=== PATIENT | male | born 1960 | race Two or more races ===

== ENCOUNTER 2018-03-14 18:37 | Emergency (ER) | payer OTHER ==
[~2018-03-14] VITALS: Ht 177.8 cm; Wt 95.3 kg
[~2018-03-14 18:37] MED LIST: ACIDOPHILUS1 EAC3 PO; AMOX1TAB12 PO; ATENOLOL25 GM; MEDROLPACK PO; MUCINEX1200 MG PO; NORVASC2.5 M1
== END 2018-03-14 20:30 | disposition home or self-care (01) ==
LOC: ER 18:37
DX: H10.33 Unspecified acute conjunctivitis, bilateral (principal)

== ENCOUNTER 2018-06-19 19:41 | Emergency (ER) | payer OTHER ==
[~2018-06-19] VITALS: Ht 177.8 cm; Wt 93.0 kg
== END 2018-06-19 21:39 | disposition home or self-care (01) ==
LOC: ER 19:41
DX: R33.8 Other retention of urine (principal)

== ENCOUNTER 2024-12-08 11:45 | Emergency (ER) | payer OTHER ==
[~2024-12-08] VITALS: Ht 177.8 cm; Wt 86.2 kg
[2024-12-08] MEDS ORDERED: AVAPRO150 MG PO (12:04)
[2024-12-08] MEDS ORDERED: LABETALOL HCL100 MG PO (12:04)
[2024-12-08] MEDS ORDERED: HYDROCHLOROTH12.5 MG (12:05)
[2024-12-08] MEDS ORDERED: 8 HOUR650 MG PO (12:58)
[2024-12-08] MEDS ORDERED: BACTRIM DS TAB1 EACH PO (12:58)
== END 2024-12-08 13:03 | disposition home or self-care (01) ==
LOC: ER 11:46
DX: L02.213 Cutaneous abscess of chest wall (principal); I10 Essential (primary) hypertension; Z88.6 Allergy status to analgesic agent